=== PATIENT | female | born 1990 | race Hispanic/Latino ===

== ENCOUNTER 2020-05-29 05:30 | Inpatient (IN) | payer BC ==
[2020-05-29] MEDS ORDERED: Lidocaine 1% (PF) 30 ML VIAL SC PRN (06:21)
[2020-05-29] MEDS ORDERED: hydrALAZINE 20 MG/ML VIAL SLOW IVP PRN ×2 (06:21→17:41)
[2020-05-29] MEDS ORDERED: Ibuprofen 800 MG TAB PO PRN (06:21)
[2020-05-29] MEDS ORDERED: Methylergonovine 0.2 MG/ML VIAL IM PRN (06:21)
[2020-05-29] MEDS ORDERED: Carboprost 250 MCG/ML AMP IM PRN (06:21)
[2020-05-29] MEDS ORDERED: Diphenoxylate HCl/Atropine Tablet PO PRN (06:21)
[2020-05-29] MEDS ORDERED: Promethazine HCl 25 MG/ML VIAL IM PRN ×3 (06:21→17:41)
[2020-05-29] MEDS ORDERED: Ondansetron PF 4 MG/2 ML Vial IVP PRN ×3 (06:21→17:41)
[2020-05-29] MEDS ORDERED: Misoprostol 200 MCG TAB PR PRN (06:21)
[2020-05-29] MEDS ORDERED: Butorphanol Tartrate 1 MG/ML VIAL SLOW IVP PRN (06:21)
[2020-05-29] MEDS ORDERED: NS / Oxytocin 40 units/1000ml 1,000 ML IV PRN (06:21)
[2020-05-29] MEDS ORDERED: HYDROcodone/Acetaminophen 5/325 mg Tablet PO PRN ×2 (06:21→17:41)
[2020-05-29] MEDS ORDERED: NS w/ Oxytocin 30 units 500 ML IVPB SCH (06:45)
[2020-05-29] MEDS ORDERED: NS w/ Oxytocin 30 units 500 ML IVPB PRN (07:00)
[2020-05-29] MEDS: Lactated Ringer's 1,000 ML IV SCH ×3 (07:30→12:29)
[2020-05-29] MEDS: NS w/ Oxytocin 30 units 500 ML IVPB SCH ×2 (07:55→15:51)
[2020-05-29 08:03] LABS: Mean Corpuscular HGB CONC 28.7 g/dL (32.0-36.0); Mean Corpuscular Hemoglobin 19.3 pg (27.0-33.0); Mean Corpuscular Volume 67.4 fl (81.6-98.3); Platelet Count 267 10x3/uL (150-450); RBC Distribution Width 19.9 % (11.5-14.5); Red Blood Cell (RBC) Count 4.14 10x6/uL (3.90-5.03); White Blood Cell (WBC) Count 8.3 10x3/uL (3.5-10.5)
[2020-05-29 08:35] LABS: Hep B Surf Ag Non-Reactive S/CO (NonReactive); Syphilis Antibody Nonreactive (Nonreactive); Syphilis Antibody Index 0.02 S/CO (<1.00 Non-Reactive)
[2020-05-29] MEDS ORDERED: diphenhydrAMINE 50 MG/ML VIAL IVP PRN ×2 (09:45→11:29)
[2020-05-29] MEDS ORDERED: Fentanyl 4 mcg/Bup 0.1% Cadd 100 ML ONE (10:28)
[2020-05-29] MEDS ORDERED: Lactated Ringer's 500 ML IV PRN (11:29)
[2020-05-29] MEDS ORDERED: Naloxone HCl 0.4 mg/ml Vial IVP PRN ×2 (11:29)
[2020-05-29] MEDS ORDERED: Acetaminophen 325 MG TAB PO PRN (11:29)
[2020-05-29] MEDS ORDERED: ePHEDrine 50 MG/ML VIAL SLOW IVP PRN (11:29)
[2020-05-29] MEDS ORDERED: Communication Order-Pharmacy FS SCH (11:30)
[2020-05-29] MEDS ORDERED: Fentanyl 4 mcg/Bupivacaine 0.1% Cassette 100 ML EPIDURAL SCH (11:30)
[2020-05-29] MEDS ORDERED: Phytonadione Neonatal 1 MG/0.5 ML AMP ONE (16:40)
[2020-05-29] MEDS ORDERED: Erythromycin Base 0.5% Oint 1 GM TUBE ONE (16:41)
[2020-05-29] MEDS ORDERED: Adacel (T-DAP) 0.5 ML SYRINGE IM ONE (17:41)
[2020-05-29] MEDS ORDERED: Lanolin Ointment 7 GM TUBE TOP PRN (17:41)
[2020-05-29] MEDS ORDERED: Benzocaine-Menthol 82.5 ML CAN TOP PRN (17:41)
[2020-05-29] MEDS ORDERED: diphenhydrAMINE 25 MG CAP PO PRN (17:41)
[2020-05-29] MEDS ORDERED: Milk Of Magnesia 30 ML UDCUP PO PRN (17:41)
[2020-05-29] MEDS ORDERED: Preparation H Ointment 28 GM TUBE PR PRN (17:41)
[2020-05-29] MEDS ORDERED: Bisacodyl 10 MG SUPP PR PRN (17:41)
[2020-05-29] MEDS ORDERED: Ferrous Sulfate 325 MG TAB PO SCH (18:45)
[2020-05-29] MEDS ORDERED: NS w/ Oxytocin 30 units 500 ML IV SCH (18:45)
[2020-05-29] MEDS: HYDROcodone/Acetaminophen 5/325 mg Tablet PO PRN (18:49)
[2020-05-29] MEDS: Docusate Calcium (SURFAK) 240 MG CAP PO SCH (20:36)
[2020-05-29] MEDS: Ibuprofen 800 MG TAB PO SCH (21:02)
[2020-05-30] MEDS: Ibuprofen 800 MG TAB PO SCH ×3 (06:58→21:42)
[2020-05-30] MEDS: Ferrous Sulfate 325 MG TAB PO SCH ×2 (09:14→21:43)
[2020-05-30] MEDS: Prenatal Vitamin 1 TAB PO SCH (09:14)
[2020-05-30] MEDS: Docusate Calcium (SURFAK) 240 MG CAP PO SCH ×2 (09:14→21:42)
[2020-05-30] MEDS: HYDROcodone/Acetaminophen 5/325 mg Tablet PO PRN ×2 (14:34→19:18)
[2020-05-30] MEDS ORDERED: ePHEDrine Sulfate 50 MG/10 ML VIAL ONE (19:24)
[2020-05-31] MEDS: Ibuprofen 800 MG TAB PO SCH ×2 (00:15→15:28)
[2020-05-31] MEDS: Simethicone Chewable 80 MG TAB PO PRN ×2 (03:26→09:44)
[2020-05-31 08:21] VITALS: BP 138/63; TEMP 98.3
[2020-05-31] MEDS: Docusate Calcium (SURFAK) 240 MG CAP PO SCH (09:44)
[2020-05-31] MEDS: Ferrous Sulfate 325 MG TAB PO SCH (09:44)
[2020-05-31] MEDS: Prenatal Vitamin 1 TAB PO SCH (09:44)
[2020-05-31] MEDS: HYDROcodone/Acetaminophen 5/325 mg Tablet PO PRN (09:44)
== END 2020-05-31 17:45 | disposition home or self-care (01) | DRG 807 ==
LOC: CSHLD 05:54 → CSHPP 18:40
PROVIDERS: ADMIT Family Medicine; ATTEND Family Medicine
PROC: 10E0XZZ Delivery of Products of Conception, External Approach (ICD-10-PCS; principal; 2020-05-29)
PROC: 10907ZC Drainage of Amniotic Fluid, Therapeutic from Products of Conception, Via Natural or Artificial Opening (ICD-10-PCS; 2020-05-29)
PROC: 3E033VJ Introduction of Other Hormone into Peripheral Vein, Percutaneous Approach (ICD-10-PCS; 2020-05-29)
DX: O80 Encounter for full-term uncomplicated delivery (principal); Z37.0 Single live birth; Z3A.39 39 weeks gestation of pregnancy
CPT/HCPCS: 51702; 76815; 85027; 86780; 86850; 86900; 86901; 87340; J1200; J2590

== ENCOUNTER 2021-08-17 09:40 | Emergency (ER) | payer BC, SELFPAY ==
[2021-08-17] MEDS ORDERED: Acetaminophen 500 MG TAB ONE (10:18)
[2021-08-17 10:31] LABS: Bilirubin Neg (Negative); Blood, Urine Negative (Negative); Clarity Clear (Clear); Glucose, Urine (Dipstick) Normal (Negative); Ketone, Urine Negative (Negative); Leukocyte Negative (Negative); Nitrite Negative (Negative); Protein, Urine (Dipstick) 15 mg/dl (Neg-Trace); Specific Gravity, Urine 1.015 (1.002-1.036); Urobilinogen Normal mg/dL (Less than 2)
[2021-08-17 10:33] LABS: Pregnancy Test - Urine (BHCG) Negative (Negative); Pregu Control Background? CLEAR/WHITE (CLR/WHITE); Pregu Control Bar Appear? YES (CONTROL BAR); Specific Gravity 1.015 (1.002-1.036)
== END 2021-08-17 11:52 | disposition home or self-care (01) ==
LOC: CSHERS 09:40
DX: M54.50 Low back pain, unspecified (principal)
CPT/HCPCS: 81003; 81025; 99283

== ENCOUNTER 2022-01-12 21:04 | Observation (INO) | payer SELFPAY ==
[2022-01-12 22:22] LABS: #Basophils 0.1 10x3/uL (0.0-0.2); #Monocytes 0.7 10x3/uL (0.0-1.1); #Neutrophils 6.4 10x3/uL (1.5-8.4); %Basophils 0.5 % (0.0-2.0); %Eosinophils 0.3 % (0.0-6.0); %Lymphocytes 27.4 % (18.0-47.0); %Monocytes 6.6 % (0.0-10.0); %Neutrophils 64.9 % (40.0-75.0); Hemoglobin 11.9 g/dL (12.0-15.5); Mean Corpuscular HGB CONC 33.8 g/dL (32.0-36.0); Mean Corpuscular Hemoglobin 28.7 pg (27.0-33.0); Mean Corpuscular Volume 84.8 fl (81.6-98.3); Mean Platelet Volume 10.1 fl (7.4-10.4); Platelet Count 354 10x3/uL (150-450); RBC Distribution Width 13.1 % (11.5-14.5); Red Blood Cell (RBC) Count 4.15 10x6/uL (3.90-5.03); White Blood Cell (WBC) Count 9.9 10x3/uL (3.5-10.5)
[2022-01-12 22:25] LABS: Bilirubin Neg (Negative); Blood, Urine Negative (Negative); Clarity Clear (Clear); Glucose, Urine (Dipstick) Normal (Negative); Ketone, Urine Negative (Negative); Leukocyte Negative (Negative); Nitrite Negative (Negative); Protein, Urine (Dipstick) 30 mg/dl (Neg-Trace); Specific Gravity, Urine 1.025 (1.005-1.030); Urobilinogen Normal mg/dL (Less than 2)
[2022-01-12 22:26] LABS: Pregnancy Test - Urine (BHCG) Negative (Negative); Specific Gravity 1.025 (1.002-1.036)
[2022-01-12 22:27] LABS: Pregu Control Background? CLEAR/WHITE (CLR/WHITE); Pregu Control Bar Appear? YES (CONTROL BAR)
[2022-01-12] MEDS ORDERED: Ketorolac Tromethamine 30 MG/ML VIAL ONE (22:30)
[2022-01-12] MEDS ORDERED: Orphenadrine Citrate 60 MG/2 ML VIAL IM SCH (22:30)
[2022-01-12 22:37] LABS: ALT (SGPT) 11 U/L (8-55); AST (SGOT) 15 U/L (5-34); Albumin 4.3 g/dL (3.5-5.0); Alkaline Phosphatase 67 U/L (40-110); Anion Gap 13 mmol/L (10-20); BUN (Urea Nitrogen) 17 mg/dL (7.0-18.7); Bilirubin, Total 0.3 mg/dL (0.2-1.2); Calc. Creatinine Clearance 0 mL/min (70-130); Calcium 9.3 mg/dL (7.8-10.44); Carbon Dioxide 22 mmol/L (22-29); Chloride 107 mmol/L (98-107); Estimated GFR 115; Globulin 2.8 g/dL (2.4-3.5); Glucose 117 mg/dL (70-105); Potassium 3.7 mmol/L (3.5-5.1); Protein, Total 7.1 g/dL (6.0-8.3); Sodium 138 mmol/L (136-145)
[2022-01-12 22:39] LABS: Bacteria/HPF 2+ HPF (None Seen); Mucous/LPF 4+ LPF (<2+); RBC/HPF None Seen HPF (0-3); WBC/HPF 0-3 HPF (0-3)
[2022-01-12] MEDS ORDERED: Morphine 4 MG/ML VIAL ONE (23:35)
[2022-01-13] MEDS ORDERED: Fentanyl 100 MCG/2 ML VIAL ONE (00:29)
[2022-01-13 01:55] VITALS: BMI 32.9
[2022-01-13] MEDS ORDERED: Ibuprofen 600 MG TAB PO SCH (02:00)
[2022-01-13] MEDS ORDERED: Ketorolac Tromethamine 30 MG/ML VIAL IVP SCH (03:45)
[2022-01-13] MEDS ORDERED: Morphine 4 MG/ML VIAL SLOW IVP PRN (06:11)
[2022-01-13] MEDS ORDERED: Senokot S 8.6-50 MG TAB PO PRN (06:11)
[2022-01-13] MEDS ORDERED: Ondansetron ODT 4 MG TAB PO PRN (06:11)
[2022-01-13] MEDS ORDERED: Ondansetron PF 4 MG/2 ML Vial IVP PRN (06:11)
[2022-01-13] MEDS ORDERED: Sodium Chloride 0.9% 1,000 ML IV SCH (06:15)
[2022-01-13] MEDS ORDERED: Fentanyl 100 MCG/2 ML VIAL SLOW IVP SCH (06:15)
[2022-01-13] MEDS ORDERED: Diazepam 5 MG TAB PO SCH (06:30)
[2022-01-13 07:11] LABS: Magnesium 1.8 mg/dL (1.6-2.6)
[2022-01-13] MEDS ORDERED: FLU VACC QS2022-23(6MOS UP)/PF 60 MCG/0.5 ML SYRINGE IM ONE (09:00)
[2022-01-13] MEDS: HYDROcodone/Acetaminophen 7.5/325 mg Tablet PO PRN ×2 (10:59→19:09)
[2022-01-13] MEDS: Polyethylene Glycol 3350 17 GM Packet PO SCH (11:02)
[2022-01-13] MEDS ORDERED: Iopamidol 300 61% 100 ML VIAL FS ONE (11:39)
[2022-01-13] MEDS ORDERED: oxyCODONE 5 MG TAB PO PRN (15:02)
[2022-01-13] MEDS: Fentanyl 100 MCG/2 ML VIAL SLOW IVP PRN ×2 (15:20→21:44)
[2022-01-13] MEDS: Acetaminophen 500 MG TAB PO SCH ×2 (15:23→21:56)
[2022-01-13] MEDS: Enoxaparin Sodium 40 MG/0.4 ML SYRINGE SC SCH (15:24)
[2022-01-14] MEDS: Fentanyl 100 MCG/2 ML VIAL SLOW IVP PRN ×2 (03:00→12:49)
[2022-01-14 05:25] LABS: ALT (SGPT) 10 U/L (8-55); AST (SGOT) 12 U/L (5-34); Albumin 3.6 g/dL (3.5-5.0); Alkaline Phosphatase 55 U/L (40-110); Anion Gap 11 mmol/L (10-20); BUN (Urea Nitrogen) 17 mg/dL (7.0-18.7); Bilirubin, Total 0.3 mg/dL (0.2-1.2); Calc. Creatinine Clearance 152 mL/min (70-130); Calcium 8.5 mg/dL (7.8-10.44); Carbon Dioxide 24 mmol/L (22-29); Chloride 109 mmol/L (98-107); Estimated GFR 119; Globulin 2.4 g/dL (2.4-3.5); Glucose 95 mg/dL (70-105); Potassium 3.7 mmol/L (3.5-5.1); Sodium 140 mmol/L (136-145)
[2022-01-14] MEDS: Enoxaparin Sodium 40 MG/0.4 ML SYRINGE SC SCH (08:57)
[2022-01-14] MEDS: Acetaminophen 500 MG TAB PO SCH ×2 (08:58→16:35)
[2022-01-14] MEDS: Polyethylene Glycol 3350 17 GM Packet PO SCH (09:04)
[2022-01-14] MEDS ORDERED: cefTRIAXone\\ROCEPHIN 250 MG VIAL IM SCH (14:15)
[2022-01-14] MEDS ORDERED: Lidocaine 1% PF 5 ML VIAL FS SCH (14:45)
[2022-01-14] MEDS ORDERED: cefTRIAXone\\ROCEPHIN 500 MG VIAL IM SCH (14:45)
[2022-01-14] MEDS: HYDROcodone/Acetaminophen 7.5/325 mg Tablet PO PRN (16:36)
[2022-01-14 17:11] VITALS: BP 113/63; TEMP 98.5
== END 2022-01-14 18:07 | disposition home or self-care (01) ==
LOC: CSHERS 21:04 → CSHTELE 01-13 01:25
PROVIDERS: ADMIT Family Medicine; ATTEND Hospitalist
DX: R10.9 Unspecified abdominal pain (principal); M54.9 Dorsalgia, unspecified; N83.202 Unspecified ovarian cyst, left side; N73.9 Female pelvic inflammatory disease, unspecified; I11.0 Hypertensive heart disease with heart failure; I50.9 Heart failure, unspecified; E11.9 Type 2 diabetes mellitus without complications; Z20.822 Contact with and (suspected) exposure to COVID-19; Z79.899 Other long term (current) drug therapy; Z90.49 Acquired absence of other specified parts of digestive tract; Z98.890 Other specified postprocedural states
CPT/HCPCS: 36415; 74176; 74177; 76856; 80053; 81003; 81015; 81025; 83735; 85025; 96372; 96374; 96375; 96376; G0378; J0696; J1650; J1885; J2270; J2360; J3010; J7050; Q9967; U0003; U0005

== ENCOUNTER 2023-07-17 11:47 | Inpatient (IN) | payer BC, SELFPAY ==
[~2023-07-17 11:47] MED LIST: Bupivacaine 0.25% HCL 30 ML VIAL ONE
[2023-07-17] MEDS ORDERED: Diphenoxylate HCl/Atropine Tablet PO PRN (13:15)
[2023-07-17] MEDS ORDERED: Ibuprofen 800 MG TAB PO PRN ×2 (13:15→13:18)
[2023-07-17] MEDS ORDERED: Lidocaine 1% (PF) 30 ML VIAL SC PRN ×2 (13:15→13:18)
[2023-07-17] MEDS ORDERED: Misoprostol 200 MCG TAB PR PRN ×2 (13:15→13:18)
[2023-07-17] MEDS ORDERED: Oxytocin 30 units/NS 500 ML 500 ML IV SCH ×4 (13:15→13:30)
[2023-07-17] MEDS ORDERED: Ondansetron PF 4 MG/2 ML Vial IVP PRN ×3 (13:15→17:03)
[2023-07-17] MEDS ORDERED: hydrALAZINE 20 MG/ML VIAL SLOW IVP PRN ×2 (13:15→13:18)
[2023-07-17] MEDS ORDERED: Acetaminophen 500 MG TAB PO PRN (13:15)
[2023-07-17] MEDS ORDERED: Promethazine HCl 25 MG/ML VIAL IM PRN ×3 (13:15→17:03)
[2023-07-17] MEDS ORDERED: Carboprost 250 MCG/ML AMP IM PRN (13:15)
[2023-07-17] MEDS ORDERED: Methylergonovine 0.2 MG/ML VIAL IM PRN ×2 (13:15→13:18)
[2023-07-17] MEDS ORDERED: Tranexamic Acid 1,000 MG/10 ML VIAL IVP PRN (13:15)
[2023-07-17] MEDS ORDERED: HYDROcodone/Acetaminophen 5/325 mg Tablet PO PRN ×2 (13:18)
[2023-07-17] MEDS ORDERED: fentaNYL 50 mcg/mL 1 mL Vial SLOW IVP PRN (13:18)
[2023-07-17] MEDS ORDERED: Lactated Ringer's 1,000 ML IV SCH (13:30)
[2023-07-17 13:40] VITALS: BMI 37.4
[2023-07-17 13:53] LABS: Hematocrit 33.4 % (34.9-44.5); Mean Corpuscular HGB CONC 29.9 g/dL (32.0-36.0); Mean Corpuscular Hemoglobin 22.3 pg (27.0-33.0); Mean Corpuscular Volume 74.4 fl (81.6-98.3); Platelet Count 251 10x3/uL (150-450); RBC Distribution Width 24.3 % (11.5-14.5); Red Blood Cell (RBC) Count 4.49 10x6/uL (3.90-5.03); White Blood Cell (WBC) Count 6.9 10x3/uL (3.5-10.5)
[2023-07-17 14:10] LABS: Syphilis Antibody Nonreactive (Nonreactive); Syphilis Antibody Index 0.03 S/CO (<1.00 Non-Reactive)
[2023-07-17 14:11] LABS: Hep B Surf Ag - L&D Non-Reactive S/CO (NonReactive)
[2023-07-17] MEDS: fentaNYL/Ropivacaine Epidural 100 ML ONE (15:21)
[2023-07-17] MEDS: Oxytocin 30 units/NS 500 ML 500 ML ONE (15:25)
[2023-07-17] MEDS: diphenhydrAMINE 50 MG/ML VIAL ONE (16:19)
[2023-07-17] MEDS ORDERED: Acetaminophen 325 MG TAB PO PRN (17:03)
[2023-07-17] MEDS ORDERED: ePHEDrine Sulfate 50 MG/10 ML VIAL SLOW IVP PRN (17:03)
[2023-07-17] MEDS ORDERED: Moisturizing Cream (Eucerin) 113 GM JAR TOP PRN (17:03)
[2023-07-17] MEDS ORDERED: Naloxone HCl 0.4 mg/ml Vial IVP PRN ×2 (17:03)
[2023-07-17] MEDS ORDERED: diphenhydrAMINE 50 MG/ML VIAL IVP PRN (17:03)
[2023-07-17] MEDS ORDERED: Lactated Ringer's 500 ML IV PRN (17:03)
[2023-07-17] MEDS ORDERED: Communication Order-Pharmacy FS SCH (17:15)
[2023-07-17] MEDS ORDERED: fentaNYL 2 mcg/Ropivacaine 0.2% Epidural 100 ML CADD EPIDURAL SCH (17:15)
[2023-07-18] MEDS ORDERED: Bisacodyl 10 MG SUPP PR PRN (01:08)
[2023-07-18] MEDS ORDERED: Benzocaine-Menthol 82.5 ML CAN TOP PRN (01:08)
[2023-07-18] MEDS ORDERED: hydrALAZINE 20 MG/ML VIAL SLOW IVP PRN (01:08)
[2023-07-18] MEDS ORDERED: Milk Of Magnesia 30 ML UDCUP PO PRN (01:08)
[2023-07-18] MEDS ORDERED: HYDROcodone/Acetaminophen 5/325 mg Tablet PO PRN (01:08)
[2023-07-18] MEDS ORDERED: Misoprostol 200 MCG TAB VAG PRN (01:08)
[2023-07-18] MEDS ORDERED: Oxytocin 30 units/NS 500 ML 500 ML IV SCH (01:30)
[2023-07-18] MEDS: Ibuprofen 800 MG TAB PO SCH (02:25)
[2023-07-18] MEDS: Docusate 100 MG CAP PO SCH ×2 (02:25→08:09)
[2023-07-18] MEDS: HYDROcodone/Acetaminophen 5/325 mg Tablet PO PRN (03:45)
[2023-07-18] MEDS: Prenatal Vitamin 1 TAB PO SCH (08:09)
[2023-07-18] MEDS: fentaNYL 50 mcg/mL 1 mL Vial ONE (12:09)
[2023-07-18] MEDS: Boostrix 0.5 ML (Tdap) VIAL (>/=7 yrs of age) IM ONE (12:09)
[2023-07-18] MEDS: Ferrous Sulfate 325 MG TAB PO SCH (12:09)
[2023-07-18] MEDS: Dexmedetomidine 200 MCG/2 ML VIAL ONE (12:09)
[2023-07-18] MEDS: Ondansetron ODT 4 MG TAB PO PRN (21:13)
[2023-07-19 08:10] VITALS: BP 122/63; TEMP 98.6
== END 2023-07-19 14:00 | disposition home or self-care (01) | DRG 807 ==
LOC: CSHLD/OP 11:47 → CSHLD 14:49 → CSHPP 07-18 00:45
PROVIDERS: ADMIT Obstetrics & Gynecology; ATTEND Obstetrics & Gynecology
PROC: 10E0XZZ Delivery of Products of Conception, External Approach (ICD-10-PCS; principal; 2023-07-17)
PROC: 3E033XZ Introduction of Vasopressor into Peripheral Vein, Percutaneous Approach (ICD-10-PCS; 2023-07-17)
DX: O42.02 Full-term premature rupture of membranes, onset of labor within 24 hours of rupture (principal); Z37.0 Single live birth; O76 Abnormality in fetal heart rate and rhythm complicating labor and delivery; Z3A.39 39 weeks gestation of pregnancy; Z90.49 Acquired absence of other specified parts of digestive tract; O90.89 Other complications of the puerperium, not elsewhere classified; M54.50 Low back pain, unspecified; L98.9 Disorder of the skin and subcutaneous tissue, unspecified
CPT/HCPCS: 36415; 85027; 86780; 86850; 86900; 86901; 87340; 99285; J0665; J1200; J2590; J3010; Q0162